=== PATIENT | male | born 1980 | race African-American/Black ===

== ENCOUNTER 2020-10-11 17:49 | Emergency (ER) | payer MEDICAID ==
[~2020-10-11] VITALS: Ht 175.3 cm; Wt 104.0 kg
[2020-10-11] MEDS ORDERED: TC1U15 TP (18:37)
[2020-10-11 18:45] VITALS: BP 141/91
== END 2020-10-11 18:46 | disposition home or self-care (01) ==
LOC: ER 17:49
DX: L30.9 Dermatitis, unspecified (principal)
CPT/HCPCS: 99282